=== PATIENT | male | born 1960 | race Two or more races ===

== ENCOUNTER 2018-08-15 18:56 | Inpatient (IN) | payer OTHER ==
[~2018-08-15] VITALS: Ht 167.6 cm; Wt 88.7 kg
--- NOTE | 2018-08-15 19:42 | Diagnostic Imaging Report ---
EXAM: XR Chest, 1 View CLINICAL HISTORY: SOB TECHNIQUE: Frontal view of the chest. COMPARISON: No relevant prior studies available. FINDINGS: Lungs: Mild atelectasis versus infiltrate at the lung bases, left greater than right. Low lung volumes. Pleural space: Blunting of the costophrenic angles suggestive of pleural effusions versus pleural thickening, left greater than right. No definite plain film evidence for pneumothorax. Heart: Prominence of the cardiac silhouette. Mediastinum: Unremarkable. Bones/joints: Degenerative changes of the thoracic spine. Tubes, lines and devices: Cardiac pacer projected over the left hemithorax. IMPRESSION: 1. Blunting of the costophrenic angles suggestive of pleural effusions versus pleural thickening, left greater than right. 2. Mild atelectasis versus infiltrate at the lung bases, left greater than right. 3. Prominence of the cardiac silhouette.
[2018-08-15 19:51] LABS: BASOPHILS % (AUTO) 1.2 % (0.0-2.0); EOSINOPHILS % (AUTO) 1.8 % (0.0-3.0); HEMOGLOBIN 10.2 G/DL (14.2-18.0); LYMPHOCYTES % (AUTO) 8.2 % (20.0-45.0); MEAN CORPUSCULAR VOLUME 88 FL (80-99); MONOCYTES % (AUTO) 7.7 % (1.0-10.0); NEUTROPHILS % (AUTO) 81.1 % (45.0-75.0); PLATELET COUNT 148 K/UL (150-450); RED BLOOD COUNT 3.75 M/UL (4.70-6.10); WHITE BLOOD COUNT 11.1 K/UL (4.8-10.8)
--- NOTE | 2018-08-15 19:54 | Emergency Room Report ---
History of Present Illness General Chief Complaint: General Complaint Source: Patient, Medical Record Present Illness HPI Patient is a 58-year-old male who presented after the dialysis access was accidentally removed it nursing facility. The patient had undergone dialysis earlier today. Patient is not due for dialysis for several days. Patient reported having some discomfort. History of diabetes and is normally dialyzed Friday.Patient denies any current complaints. Allergies: Uncoded Allergies: FISH (Allergy, Unknown, 08/15/18) Patient History Past Medical History: see triage record Reviewed Nursing Documentation: PMH: Agreed; PSxH: Agreed Nursing Documentation-PMH Past Medical History: No History, Except For Hx Hypertension: Yes Hx Diabetes: Yes Hx Dialysis: Yes - ESRD, renal dialysis T, , [facility], last dialysis 08/15/2018 Review of Systems All Other Systems: negative except mentioned in HPI Physical Exam Vital Signs Date Time Temp Pulse Resp B/P (MAP) Pulse Ox O2 Delivery O2 Flow Rate FiO2 08/15/18 19:06 98.2 83 18 127/78 99 Room Air Sp02 EP Interpretation: reviewed, normal General Appearance: normal inspection, alert, obese, Chronically Ill Head: atraumatic Eyes: bilateral eye other - left eye blindness ENT: normal ENT inspection, hearing grossly normal, normal voice Neck: normal inspection, full range of motion, supple, no bony tend Respiratory: normal inspection, lungs clear, normal breath sounds, no respiratory distress, no retraction, no wheezing Cardiovascular #1: regular rate, rhythm, no edema Gastrointestinal: normal inspection, normal bowel sounds, non tender, soft, no guarding, no hernia Genitourinary: no CVA tenderness Musculoskeletal: back normal, other - right lower extremity dressing metatarsal amputation Neurologic: normal inspection, alert, responsive, speech normal Psychiatric: normal inspection, judgement/insight normal, mood/affect normal Skin: other - slight bleeding from right side of chest access site Medical Decision Making Diagnostic Impression: Primary Impression: ESRD (end stage renal disease) Additional Impression: Problem with dialysis access ER Course Patient presented for accidental dialysis access removal. Differential diagnosis included was not limited to anemia, coagulopathy, among others.Because of complexity of patient's case laboratory testing and imaging studies were ordered.The patient was noted to have a prior history of end-stage renal disease and had finished dialysis. Patient's laboratory testing showed no evidence of acute need for dialysis however patient will require replacement of the dialysis access due to recent removal, Dr. Vinh Mcfadden was contacted for inpatient management due to primary physician Labs Test 08/15/18 19:30 White Blood Count 11.1 K/UL (4.8-10.8) Red Blood Count 3.75 M/UL (4.70-6.10) Hemoglobin 10.2 G/DL (14.2-18.0) Hematocrit 33.0 % (42.0-52.0) Mean Corpuscular Volume 88 FL (80-99) Mean Corpuscular Hemoglobin 27.2 PG (27.0-31.0) Mean Corpuscular Hemoglobin Concent 30.9 G/DL (32.0-36.0) Red Cell Distribution Width 20.0 % (11.6-14.8) Platelet Count 148 K/UL (150-450) Mean Platelet Volume 6.6 FL (6.5-10.1) Neutrophils (%) (Auto) 81.1 % (45.0-75.0) Lymphocytes (%) (Auto) 8.2 % (20.0-45.0) Monocytes (%) (Auto) 7.7 % (1.0-10.0) Eosinophils (%) (Auto) 1.8 % (0.0-3.0) Basophils (%) (Auto) 1.2 % (0.0-2.0) Prothrombin Time 17.0 SEC (9.30-11.50) Prothromb Time International Ratio 1.7 (0.9-1.1) Activated Partial Thromboplast Time 43 SEC (23-33) Sodium Level 139 MMOL/L (136-145) Potassium Level 3.5 MMOL/L (3.5-5.1) Chloride Level 99 MMOL/L (98-107) Carbon Dioxide Level 32 MMOL/L (21-32) Anion Gap 9 mmol/L (5-15) Blood Urea Nitrogen 11 mg/dL (7-18) Creatinine 3.2 MG/DL (0.55-1.30) Estimat Glomerular Filtration Rate 20.0 mL/min (>60) Glucose Level 72 MG/DL (74-106) Calcium Level 8.4 MG/DL (8.5-10.1) Total Bilirubin 0.9 MG/DL (0.2-1.0) Aspartate Amino Transf (AST/SGOT) 37 U/L (15-37) Alanine Aminotransferase (ALT/SGPT) 15 U/L (12-78) Alkaline Phosphatase 85 U/L (46-116) Total Protein 8.3 G/DL (6.4-8.2) Albumin 2.1 G/DL (3.4-5.0) Globulin 6.2 g/dL Albumin/Globulin Ratio 0.3 (1.0-2.7) Last Vital Signs Date Time Temp Pulse Resp B/P (MAP) Pulse Ox O2 Delivery O2 Flow Rate FiO2 08/15/18 19:06 98.2 83 18 127/78 99 Room Air Status: unchanged Disposition: ADMITTED INPATIENT Ivan Cartagena MD Aug 15, 2018 19:54
[2018-08-15 19:56] LABS: ANION GAP 9 mmol/L (5-15); BLOOD UREA NITROGEN 11 mg/dL (7-18); CALCIUM 8.4 MG/DL (8.5-10.1); CARBON DIOXIDE 32 MMOL/L (21-32); CHLORIDE 99 MMOL/L (98-107); CREATININE 3.2 MG/DL (0.55-1.30); POTASSIUM 3.5 MMOL/L (3.5-5.1); SODIUM 139 MMOL/L (136-145)
[2018-08-15 19:57] LABS: INR 1.7 (0.9-1.1)
[2018-08-15 20:00] LABS: ALANINE AMINOTRANSFERASE 15 U/L (12-78); ALBUMIN 2.1 G/DL (3.4-5.0); ALBUMIN/GLOBULIN RATIO 0.3 (1.0-2.7); ALKALINE PHOSPHATASE 85 U/L (46-116); ASPARTATE AMINO TRANSFERASE 37 U/L (15-37); BILIRUBIN,TOTAL 0.9 MG/DL (0.2-1.0)
[2018-08-15 20:02] VITALS: BP 127/78
[2018-08-15 22:30] VITALS: BP 132/80
[2018-08-16] MEDS ORDERED: Pantoprazole Inj IVP SCH ×2 (01:30→09:00)
[2018-08-16] MEDS ORDERED: SF56 GM DT (01:38)
[2018-08-16] MEDS ORDERED: CARVEDILOL3.125 MG ORAL (01:38)
[2018-08-16] MEDS ORDERED: RENAGEL800 MG ORAL (01:38)
[2018-08-16] MEDS ORDERED: ATORVASTATIN CA40 MG ORAL (01:38)
[2018-08-16] MEDS ORDERED: CLOPIDOGREL75 MG ORAL (01:38)
[2018-08-16] MEDS ORDERED: FOLIC ACID1 MG ORAL (01:38)
[2018-08-16] MEDS ORDERED: GABAPENTIN300 MG ORAL (01:38)
[2018-08-16] MEDS ORDERED: ACETAMINOPHEN120 MG RECTAL (01:38)
[2018-08-16] MEDS ORDERED: AMIODARONE HCL400 M1 ORAL (01:38)
[2018-08-16] MEDS ORDERED: ASPIRIN81 MG ORAL (01:38)
[2018-08-16] MEDS ORDERED: LACTULOSE20 GM/301 ORAL (01:38)
[2018-08-16] MEDS ORDERED: NORCO 5-325 TA1 EACH ORAL (01:38)
[2018-08-16] MEDS ORDERED: HUMULIN R100 UNIT/1 SUBQ (01:38)
[2018-08-16] MEDS ORDERED: NEPRO CARB STE237 ML PO (01:38)
[2018-08-16] MEDS ORDERED: PREDNISOLO15 MG/5 M1 ORAL (01:38)
[2018-08-16] MEDS ORDERED: EPOGEN20000 UNI1 SUBQ (01:38)
[2018-08-16] MEDS ORDERED: NEPHROVITE1 TAB ORAL (01:38)
[2018-08-16] MEDS ORDERED: Lactulose 20gm/30ml UDC ORAL PRN (02:30)
[2018-08-16] MEDS ORDERED: Norco 5mg/325mg tab ORAL PRN ×2 (02:30→03:22)
[2018-08-16 06:14] LABS: BASOPHILS % (AUTO) 0.9 % (0.0-2.0); EOSINOPHILS % (AUTO) 2.4 % (0.0-3.0); HEMATOCRIT 30.5 % (42.0-52.0); HEMOGLOBIN 9.4 G/DL (14.2-18.0); LYMPHOCYTES % (AUTO) 12.3 % (20.0-45.0); MEAN CORPUSCULAR VOLUME 89 FL (80-99); NEUTROPHILS % (AUTO) 76.5 % (45.0-75.0); PLATELET COUNT 141 K/UL (150-450); RED BLOOD COUNT 3.45 M/UL (4.70-6.10); RED CELL DISTRIBUTION WIDTH 20.1 % (11.6-14.8); WHITE BLOOD COUNT 10.2 K/UL (4.8-10.8)
[2018-08-16 06:19] LABS: ANION GAP 8 mmol/L (5-15); BLOOD UREA NITROGEN 14 mg/dL (7-18); CALCIUM 8.6 MG/DL (8.5-10.1); CARBON DIOXIDE 30 MMOL/L (21-32); CHLORIDE 100 MMOL/L (98-107); CREATININE 3.7 MG/DL (0.55-1.30); POTASSIUM 3.8 MMOL/L (3.5-5.1); SODIUM 138 MMOL/L (136-145)
[2018-08-16] MEDS: NovoLOG Insulin Flexpen SUBQ SCH ×2 (06:30→11:30)
[2018-08-16 08:00] VITALS: BP 108/68
[2018-08-16 08:36] LABS: INR 1.8 (0.9-1.1)
[2018-08-16] MEDS ORDERED: Nephrovite tab (Rena-Vite) ORAL SCH (09:00)
[2018-08-16] MEDS ORDERED: Pantoprazole Inj IVP ONE (09:00)
[2018-08-16] MEDS ORDERED: Amiodarone 200mg tab ORAL SCH (09:00)
[2018-08-16 12:00] VITALS: BP 107/68
--- NOTE | 2018-08-16 16:45 | History and Physical Report ---
DATE OF ADMISSION: 08/15/2018 CHIEF COMPLAINT: Dislodged Linda PermCath. HISTORY OF PRESENT ILLNESS: This is a pleasant male with history of end-stage renal disease. He has a prior history of peritoneal dialysis and history of and osteomyelitis. He was transferred from a shelter facility after he was going to the bathroom and somehow his PermCath got pulled out. According to the patient, he did not pull out his catheter. He is unaware of it getting caught on anything but regardless when he had gone to the bathroom the catheter was mostly dislodged. He had bleeding. Pressure was placed and the patient was sent to the emergency room. On evaluation there, the patient had a pressure dressing placed. Hemoglobin remained stable. He was admitted for observation. Currently there was no further bleeding noted. The patient's last hemodialysis was on the day of admission. He is not due for hemodialysis until Friday. PAST MEDICAL HISTORY: As above. History of problems with atrial fibrillation, neuropathy, diabetes. PAST SURGICAL HISTORY: Includes a history of transmetatarsal amputation. CURRENT MEDICATIONS: Reconciled and reviewed. ALLERGIES: None. FAMILY HISTORY: None. SOCIAL HISTORY: Negative for tobacco, ethanol, or drugs. REVIEW OF SYSTEMS: Negative. PHYSICAL EXAMINATION: VITAL SIGNS: Temperature , pulse of 80, blood pressure 108/60. GENERAL: The patient is in no apparent distress. HEART: Regular rate and rhythm. LUNGS: Clear. ABDOMEN: Soft. EXTREMITIES: Without clubbing or cyanosis. There is a transmetatarsal amputation noted. LABORATORY AND DIAGNOSTIC DATA: Hemoglobin 10, this morning 9.4. ASSESSMENT: This is a pleasant male admitted with complaints of a dislodged PermCath. The patient is stable. He is requesting discharge and followup at [facility] for placement was PermCath. This seems reasonable as there was no further bleeding noted and he is not due for dialysis now for several days. The patient will be discharged back to the shelter facility. Vinh Mcfadden M.D. DR: Tyrone JOB#: [id number] CC:
[2018-08-16] MEDS ORDERED: Atorvastatin 80mg tab ORAL SCH (21:00)
--- NOTE | 2018-08-17 13:36 | Discharge Summary ---
Discharge Summary Discharge Summary _ DATE OF ADMISSION: 08/15/2018 DATE OF DISCHARGE: 2017 REASON FOR ADMISSION: 58 years old male, resident of [facility] facility, with past medical history of end-stage renal disease , on dialysis hypertension, pacemaker, peripheral vascular disease, left eye blindness ,diabetes mellitus ,was transferred to emergency room for evaluation due to dislodged Perma-catheter. Apparently patient was getting to the bathroom and somehow the catheter was dislodged. Patient was bleeding. Pressure was applied , and patient was sent to emergency room for evaluation . Last hemodialysis was on the day of admission, 08/15/18. Upon evaluation vital signs were stable. Hemoglobin remained stable. Pressure dressing applied. Patient was admitted with diagnoses of dislodged Perma-catheter . HOSPITAL COURSE: Patient admitted to monitored floor. No further bleeding. Hemoglobin 9.4 hematocrit 30.5. Patient remained hemodynamically stable. Home medications were continued. Patient requested to be discharged and follow up at [facility] for placement of Perma-catheter . Patient was not due for hemodialysis until August 18. No evidence of fluid overload. Patient subsequently was discharged to [facility] facility. Due to rapid and unexpected improvement in patient's condition patient was discharged in one day. FINAL DIAGNOSES: Dislodged Perma-catheter End-stage renal disease, on hemodialysis DISCHARGE MEDICATIONS: See Medication Reconciliation list. DISCHARGE INSTRUCTIONS: Patient was discharged to the [facility] facility. Follow up with medical doctor at the facility. Follow up at [facility] for placement of Perma-catheter. Follow up with outpatient hemodialysis. I have been assigned to dictate discharge summary for this account. I was not involved in the patient's management. Coleen Rahman NP Aug 17, 2018 13:36
--- NOTE | 2018-08-19 | Consultation ---
DATE OF CONSULTATION: 08/15/2018 CARDIOLOGY CONSULTATION CONSULTING PHYSICIAN: Luis Brewer M.D. REFERRING PHYSICIAN: Vinh Mcfadden M.D. REASON FOR CONSULT: Management of cardiac arrhythmias. HISTORY OF PRESENT ILLNESS: This 58-year-old male with end-stage renal disease, on hemodialysis. Accidentally he removed his dialysis access and was brought to the emergency room. This occurred after dialysis session earlier today, which was apparently completed without complications. The patient did complain of some discomfort at the site of his catheter. I have been asked to assist with his care addressing his antiarrhythmic therapy and pacemaker. PAST MEDICAL HISTORY: Hypertension, type 2 diabetes mellitus, end-stage renal disease, paroxysmal atrial fibrillation, and permanent pacemaker. ALLERGIES: Fish. SOCIAL HISTORY: No active smoking, alcohol, or substance abuse. MEDICATIONS: Prior to admission, reviewed and reconciled. REVIEW OF SYSTEMS: He has not had any palpitations. He does not recall when his pacemaker was last checked. He is unaware of how long he has been on amiodarone. PHYSICAL EXAMINATION: VITAL SIGNS: Afebrile. Blood pressure 127/78, pulse 83, and respirations 18. HEENT: Conjunctivae are pink. Oropharynx is clear. Left eye blindness. NECK: Supple. LUNGS: Clear. CARDIAC: Regular. Normal S1, S2 with a fourth heart sound. ABDOMEN: Soft and nontender. EXTREMITIES: No edema. SKIN: Right chest wall subclavian site with no active bleeding at the site of catheter access. LABORATORY DATA: White count 11, hemoglobin 10.2. EKG revealed a paced rhythm. Potassium is 3.5, BUN 11, and creatinine 3.2. IMPRESSION: 1. Status post accidental removal of dialysis access. 2. End-stage renal disease with no acute indication for dialysis at this time. 3. Paroxysmal atrial fibrillation, suppressed with amiodarone. 4. Permanent pacemaker. 5. Hypertensive cardiomyopathy. 6. Type 2 diabetes mellitus. PLAN: 1. Continue maintenance dose amiodarone. 2. Check thyroid panel. 3. We will attempt to obtain records regarding pacemaker and prior interrogations and we will arrange new interrogation either in-hospital or at the long term facility if he is discharged. 4. Monitor volume status and cardiorenal parameters from the new access. Luis Brewer M.D. DR: REJI JOB#: [id number] CC:
--- NOTE | 2018-08-19 | Progress Note ---
DATE: 08/16/2018 CARDIOLOGY PROGRESS NOTE Late entry for 08/16/2018. SUBJECTIVE: The patient remains without bleeding at the catheter site. Monitored rhythm paced. OBJECTIVE: VITAL SIGNS: Blood pressure 108/68 and heart rate 80. NECK: Supple. Chest wall without bleeding. LUNGS: Clear. CARDIAC: Regular. Normal S1, S2 with a fourth heart sound. ABDOMEN: Soft. EXTREMITIES: No edema. IMPRESSION: 1. End-stage renal disease. 2. Status post removal of dialysis catheter. 3. No acute indication for dialysis or ultrafiltration presently. 4. Stable cardiac rhythm. 5. Permanent pacemaker. PLAN: 1. Okay for discharge. 2. Outpatient access prior to next dialysis. 3. Continue maintenance dose amiodarone. 4. Follow up thyroid function studies. 5. We will interrogate pacemaker as outpatient and review prior records regarding device and make necessary recommendations. Luis Brewer M.D. DR: JOSIE JOB#: [id number] CC:
== END 2018-08-16 16:20 | DRG 466 ==
LOC: EDBD 18:56 → EMR 19:30 → 2E 21:35 → EDBEDREQ 22:31
DX: T82.42XA Displacement of vascular dialysis catheter, initial encounter (principal); I13.11 Hypertensive heart and chronic kidney disease without heart failure, with stage 5 chronic kidney disease, or end stage renal disease; T82.838A Hemorrhage due to vascular prosthetic devices, implants and grafts, initial encounter; E11.22 Type 2 diabetes mellitus with diabetic chronic kidney disease; I43 Cardiomyopathy in diseases classified elsewhere; G62.9 Polyneuropathy, unspecified; I48.0 Paroxysmal atrial fibrillation; H54.62 Unqualified visual loss, left eye, normal vision right eye; I73.9 Peripheral vascular disease, unspecified; Z89.439 Acquired absence of unspecified foot; Z95.0 Presence of cardiac pacemaker; Z99.2 Dependence on renal dialysis; N18.6 End stage renal disease; Y84.1 Kidney dialysis as the cause of abnormal reaction of the patient, or of later complication, without mention of misadventure at the time of the procedure; Z91.018 Allergy to other foods
CPT/HCPCS: 36415; 71045; 80048; 80053; 82962; 85025; 85610; 85730; 86850; 86900; 86901; 87081; 93005; 99285; J1815; J2405